=== PATIENT | female | born 1965 | race Caucasian/White ===

== ENCOUNTER 2020-02-19 06:51 | Outpatient (REF) | payer BC, SELFPAY | END 2020-02-19 06:52 | disposition home or self-care (01) | LOC: HO.LAB 06:51 | PROVIDERS: Visit Provider Internal Medicine | DX: Z20.828 Contact with and (suspected) exposure to other viral communicable diseases (principal) | CPT/HCPCS: C9803; U0003 ==

== ENCOUNTER → 2020-05-13 09:18 | Outpatient (REF) | payer BC, SELFPAY ==
--- NOTE | 2020-05-13 09:30 | CA_ITS ---
Acquisition Time: 2020-05-13 09:44:13 Total Exercise Time: 00:03:53 Test Indications: Chest Pain Medications: PANTOPRAZOLE NAPROXEN GABAPENTIN Protocol: JOSUE Max HR: 176 BPM 107% of Pred: 164 BPM Max BP: 234/090 mmHG Max Work Load: 4.6 METS Exercise stress test with exercise 3 min 53 sec of Josue protocol stage 1, ( stage held due to HR of 100% MPHR at just over 2 min exercise) acheving 105% MPHR, without anginal symptoms, with isolated PVCs, PACs and atrial cuplets, with hypertensive response to exercise with max BP 234/90, without EKG changes meeting criteria for ischemia. In reccovery her BP gradually improved to 160/80. She tells me she has been off her Propranolol for 72 hrs prior to this test. Accuracy to assess for ischemia is mildly decreased due to suboptimal exercise time, goal exercise was 5 min. Test reviewed with Dr Kingston. Called placed to Dr Santiago's office and reported the above. Referred By: Bam Santiago Overread By: LIDIA GARCIA
== END ==
LOC: HO.CARD 09:18
PROVIDERS: Visit Provider Internal Medicine
DX: R07.89 Other chest pain (principal)
CPT/HCPCS: 93016; 93017; 93018

== ENCOUNTER → 2020-06-17 08:27 | Outpatient (REF) | payer BC, SELFPAY ==
--- NOTE | ~2020-06-17 | NM_ITS ---
Lexiscan Myocardial perfusion study Indication: Chest pain, assess for coronary disease and ischemia Technique: The patient was brought in for a Lexiscan perfusion study on 06/17/2020 and was injected 0.4 mg of Lexiscan intravenously. Within a minute of this injection 30 mCi of sestamibi was given intravenously. Images were obtained using the SPECT gamma camera interlaced with the gating device. Images were obtained in supine position. Resting perfusion study was performed on 06/19/2020. Patient was administered 30 mCi of sestamibi intravenously at rest. Images were then obtained in supine position. Total DLP 126mGy-cm. Images were processed with the software and compared side to side in short axis, horizontal long axis and vertical long axis views. Findings: Raw acquisition was reviewed. The stress perfusion study showed no significant perfusion abnormality. Both uncorrected as well as CT attenuation corrected images were reviewed. The gated study shows normal LV systolic function with calculated LVEF of 68%. LV cavity is normal in size. The gated study shows normal wall thickening and contraction of segments. Resting study shows no significant perfusion abnormality.. Gating at rest reveals normal wall motion with ejection fraction at 64%. The findings are consistent with no reversible or fixed perfusion abnormality. NM/NM dyan perf SPECT rest & str Impression: 1. Myocardial perfusion imaging study shows normal myocardial perfusion. No evidence of any ischemia or infarction. 2. Gated LVEF is 68% during stress and 64% during rest. 3. Transient ischemic dilatation not present. EKG component of the test reported separately.
--- NOTE | 2020-06-17 08:30 | CA_ITS ---
Acquisition Time: 2020-06-17 08:49:57 Total Exercise Time: 00:02:00 Test Indications: Chest Pain Medications: SEE CHART Protocol: LEXISCAN Max HR: 123 BPM 75% of Pred: 164 BPM Max BP: 146/084 mmHG Max Work Load: 1.0 METS Pharmacological stress test using Lexiscan while sitting and kicking her feet. Pt tolerated well, denies any anginal sx. EKG without any arrhythmias, non-diagnostic for ischemia. Nuclear images to follow. Normotensive response to test. Test reviewed with Dr. Sams. Referred By: Bam Santiago Overread By: Minnie Childress NP
== END ==
LOC: HO.CARD 08:27
PROVIDERS: Visit Provider Internal Medicine
DX: R94.39 Abnormal result of other cardiovascular function study (principal)
CPT/HCPCS: 78452; 93017; A9500; J0280; J2785

== ENCOUNTER 2021-01-22 11:56 | Outpatient (REF) | payer BC, SELFPAY ==
[2021-01-22 12:52] LABS: Appearance Urine HAZY; Color Urine YELLOW; Glucose Urine UA NEG (NEG); Leukocyte Esterase Urine TRACE (NEG); Nitrite Urine NEG (NEG); Specific Gravity - Urine >= 1.030 (1.005-1.025); UACC Culture Trigger YES; Urine Blood NEG (NEG); Urine Ketones 5 MG/DL (NEG); Urine Protein TRACE MG/DL (NEG-TRACE)
[2021-01-22 12:59] LABS: Bacteria Urine 2+ /LPF; Calcium Oxalate Crystals Urine 3+ /LPF; Mucus Urine 2+ /LPF; RBC Urine 0 /HPF (0); Squamous Epithelial Cell Urine 3+ /LPF
== END 2021-01-22 11:57 | disposition home or self-care (01) ==
LOC: HO.MANLDS 11:56
PROVIDERS: PCP Physician Assistant; Visit Provider Physician Assistant
DX: R30.0 Dysuria (principal)
CPT/HCPCS: 81001; 87086

== ENCOUNTER 2023-08-23 08:30 | Outpatient (REF) | payer OTHER, SELFPAY ==
[2023-08-23 13:33] LABS: MANUAL DIFF FLAG NO
[2023-08-23 13:49] LABS: Basophils Percent Auto 0.6 % (0-2); Eosinophils Absolute Auto 0.3 X10*3/uL (0.0-0.4); Eosinophils Percent Auto 4.7 % (0-4); Hematocrit 40.6 % (37.0-47.0); Hemoglobin 13.1 g/dl (12.0-16.0); Imm Gran Abs Auto 0.02 X10*3/uL (0.00-0.03); Imm Gran Pct Auto 0.3 % (0.0-0.4); Lymphocytes Absolute Auto 1.9 X10*3/uL (1.2-4.9); Lymphocytes Percent Auto 27.6 % (20-40); Mean Corpuscular HGB Conc 32.3 g/dl (31.0-35.0); Mean Corpuscular Hemoglobin 29.3 pg (27.0-33.0); Mean Corpuscular Volume 90.8 fL (80.0-98.0); Mean Platelet Volume 10.4 fL (9.4-12.3); Monocytes Absolute Auto 0.6 X10*3/uL (0.1-1.2); Neutrophils Absolute Auto 4.1 x10*3/uL (2.0-8.3); Neutrophils Percent Auto 57.8 % (45-73); Platelet Count 306 X10*3/uL (160-400); Red Blood Count 4.47 X10*6/uL (4.20-5.50)
[2023-08-23 14:23] LABS: Alanine Aminotransferase 24 U/L (0-31); Albumin Level 4.3 g/dL (3.5-5.0); Alkaline Phosphatase 103 U/L (39-117); Anion Gap 14 (12-20); Aspartate Amino Transferase 24 U/L (5-31); Bilirubin Total 0.4 mg/dL (0.0-1.0); Blood Urea Nitrogen 14 mg/dL (9-16); Calcium 10.2 mg/dL (8.4-10.2); Carbon Dioxide 29 mmol/L (22-29); Chloride 103 mmol/L (96-108); Cholesterol 234 mg/dL (<200); Estimated Glomerular Filt Rate > 60; Glucose Random 89 mg/dL (60-115); HDL Cholesterol 64 mg/dL (>40); LDL Cholesterol Calculated 139 mg/dL (<100); Potassium 4.6 mmol/L (3.3-5.1); Sodium 141 mmol/L (135-145); Total Protein 7.7 g/dL (6.5-8.0); Triglycerides 156 mg/dL (<150); Vitamin D 25-OH Total 70.1 ng/mL (>30)
== END 2023-08-23 08:31 | disposition home or self-care (01) ==
LOC: HO.MANLDS 08:30
PROVIDERS: Visit Provider Internal Medicine
DX: I10 Essential (primary) hypertension (principal)
CPT/HCPCS: 36415; 80053; 80061; 82306; 85025

== ENCOUNTER 2023-09-13 13:47 | Outpatient (REF) | payer OTHER, SELFPAY ==
[2023-09-13 18:10] LABS: TSH reflex Free T4 1.66 uIU/mL (0.32-4.0)
[2023-09-13 18:36] LABS: Vitamin B12 670 pg/mL (200-900)
== END 2023-09-13 13:48 | disposition home or self-care (01) ==
LOC: HO.MANLDS 13:47
PROVIDERS: Visit Provider Internal Medicine
DX: R20.0 Anesthesia of skin (principal)
CPT/HCPCS: 36415; 82607; 82746; 84443

== ENCOUNTER 2023-09-21 09:41 | Outpatient (REF) | payer OTHER, SELFPAY ==
--- NOTE | 2023-09-21 09:48 | EMG_ITS ---
Bilateral tibial and peroneal motor studies were performed. Bilateral sural, superficial peroneal, and medial and lateral mix plantar sensory studies were performed. Tibial H reflexes were obtained and needle examination was performed. 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 In addition, there was evidence of multilevel bilateral lumbar radiculopathy, which was difficult to precisely localized because of presence of neuropathy. There was no acute component to this pathology. MD HARI Hernandez/LESTER / [id number]
== END 2023-09-21 09:42 | disposition home or self-care (01) ==
LOC: HO.NEURO 09:41
PROVIDERS: PCP Internal Medicine; Visit Provider Internal Medicine
DX: R20.0 Anesthesia of skin (principal)
CPT/HCPCS: 95886; 95913